=== PATIENT | male | born 1945 | race Caucasian/White ===

== ENCOUNTER 2017-04-08 07:00 | Day surgery (SDC) | payer OTHER ==
[~2017-04-08] VITALS: Ht 167.6 cm; Wt 77.1 kg
[~2017-04-08 07:00] MED LIST: COZAAR100 MG PO; FORTAMET1000 MG PO; GLIPIZIDE ER5 MG PO
== END 2017-04-09 08:00 | disposition home or self-care (01) ==
LOC: CIR.AMB 07:00 → O/R 11:05 → SURG 11:05 → EDSTATUS 13:30 → SURG 13:30 → CIR.AMB 04-09 08:00 → O/R 04-09 11:00
DX: N40.1 Benign prostatic hyperplasia with lower urinary tract symptoms (principal); N13.8 Other obstructive and reflux uropathy; E11.9 Type 2 diabetes mellitus without complications

== ENCOUNTER 2017-04-18 08:37 | Emergency (ER) | payer OTHER ==
[~2017-04-18] VITALS: Ht 167.6 cm; Wt 79.4 kg
== END 2017-04-18 16:34 | disposition home or self-care (01) ==
LOC: ER 08:37
DX: T81.89XS Other complications of procedures, not elsewhere classified, sequela (principal); R31.9 Hematuria, unspecified; E11.65 Type 2 diabetes mellitus with hyperglycemia; Y84.8 Other medical procedures as the cause of abnormal reaction of the patient, or of later complication, without mention of misadventure at the time of the procedure

== ENCOUNTER 2017-05-26 12:29 | Outpatient (CLI) | payer OTHER | END 2017-05-26 12:30 | disposition home or self-care (01) | LOC: LAB 12:29 | DX: N30.00 Acute cystitis without hematuria (principal) ==

== ENCOUNTER 2017-07-12 18:25 | Emergency (ER) | payer OTHER ==
[~2017-07-12] VITALS: Ht 167.6 cm; Wt 74.8 kg
== END 2017-07-13 09:50 | disposition home or self-care (01) ==
LOC: ER 18:25 → CPU-OBS 18:42 → ER 18:42 → CPU-OBS 07-13 09:50
DX: J09.X2 Influenza due to identified novel influenza A virus with other respiratory manifestations (principal); R07.89 Other chest pain; R50.9 Fever, unspecified; I10 Essential (primary) hypertension